=== PATIENT | male | born 1975 | race Two or more races ===

== ENCOUNTER 2023-11-13 14:20 | Emergency (ER) | payer OTHER ==
[~2023-11-13] VITALS: Ht 170.2 cm; Wt 74.8 kg
[2023-11-13 15:38] LABS: HEMATOCRIT 45.2 % (39.0-48.0); HEMOGLOBIN 15.1 g/dL (13-16.00); MEAN CELL VOLUME 82.8 fL (80.0-100.00); MEAN CORPUSCULAR HEMOGLOBIN 27.7 pg (27.00-32.0); MEAN CORPUSCULAR HGB CONC 33.4 g/dl (32.0-36.0); PLATELET COUNT 239 K/uL (150-450); RED BLOOD COUNT 5.46 M/uL (4.00-6.00); RED CELL DISTRIBUTION WIDTH 13.7 % (11.5-14.5)
[2023-11-13 15:59] LABS: CALCIUM 8.9 mg/dL (8.5-10.1); CREATININE SERUM 1.08 mg/dL (0.70-1.30); GFR 73.61; POTASSIUM 4.16 mEq/L (3.5-5.1)
[2023-11-13 17:22] LABS: URINE APPEARANCE Clear; URINE BILIRRUBIN Negative (NEGATIVE); URINE BLOOD Negative; URINE COLOR Yellow; URINE GLUCOSE Negative (NEGATIVE); URINE LEUKOCYTE Negative; URINE NITRATE Negative; URINE PROTEIN Negative (NEGATIVE); URINE UROBILINOGEN 0.2 E.U./dl
[2023-11-13 17:23] LABS: URINE BACTERIA 17.6 uL (0.0-1933); URINE WBC 4.7 uL (0.0-23.2)
[2023-11-13 17:24] LABS: URINE EPITHELIAL CELLS 0.9 uL (0.0-38.8); URINE RBC 0.5 uL (0.0-20.8)
[2023-11-13] MEDS ORDERED: INTESTINEX680 M1 PO (18:02)
[2023-11-13] MEDS ORDERED: PEPCID AC20 MG PO (18:02)
== END 2023-11-13 18:18 | disposition home or self-care (01) ==
LOC: ER 14:21
PROVIDERS: Nurse Practitioner Family
DX: K52.1 Toxic gastroenteritis and colitis (principal); A08.8 Other specified intestinal infections; Z20.822 Contact with and (suspected) exposure to COVID-19

== ENCOUNTER 2024-02-11 13:51 | Outpatient (CLI) | payer OTHER ==
[~2024-02-11 13:51] MED LIST: INTESTINEX680 M1 PO; PEPCID AC20 MG PO
== END 2024-02-11 14:01 | disposition home or self-care (01) ==
LOC: SONOGRAMA 13:51
DX: E04.1 Nontoxic single thyroid nodule (principal)